=== PATIENT | male | born 1995 | race Caucasian/White ===

== ENCOUNTER 2019-11-01 20:14 | Emergency (ER) | payer OTHER ==
[~2019-11-01] VITALS: Ht 182.9 cm; Wt 119.0 kg
[2019-11-01 20:27] VITALS: BP 130/90
--- NOTE | 2019-11-01 21:01 | NUR ---
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
== END 2019-11-01 21:42 | disposition home or self-care (01) ==
LOC: ED 21:34
DX: S60.512A Abrasion of left hand, initial encounter (principal); S60.812A Abrasion of left wrist, initial encounter; X58.XXXA Exposure to other specified factors, initial encounter; Y93.89 Activity, other specified; Y92.488 Other paved roadways as the place of occurrence of the external cause; Y99.8 Other external cause status
CPT/HCPCS: 99283